=== PATIENT | male | born 1985 | race African-American/Black ===

== ENCOUNTER → 2018-01-19 | Outpatient (CLI) | payer BC ==
[~2018-01-19] MED LIST: BARIUM SULFATE 450ML ORAL SUSP ONE; IOHEXOL-350 100 ML BOTTLE ONE
== END | disposition home or self-care (01) ==
LOC: CT 08:32
DX: K80.20 Calculus of gallbladder without cholecystitis without obstruction (principal); R18.8 Other ascites
CPT/HCPCS: 74178; Q9967